=== PATIENT | female | born 1985 | race Caucasian/White ===

== ENCOUNTER 2018-01-11 06:11 | Emergency (ER) | payer MEDICAID, OTHER ==
[2018-01-11 06:21] VITALS: BP 150/96
[2018-01-11] MEDS ORDERED: DOXYCYCLINE HYCLATE 100 MG CAP/TAB PO ONE (06:43)
[2018-01-11] MEDS ORDERED: DOXYCYCLINE 100 MG PREPACK#2 BTL TAKEHOME ONE (06:43)
--- NOTE | 2018-01-11 06:44 | EDPHY ---
H & P Stated Complaint: L ELBOW SWELLING AND INCREASED REDNESS, ON KEFLEX Time Seen by Provider: 01/11/18 06:23 HPI/ROS: HPI The patient presents with left-sided elbow pain and swelling which has been present for the last 2 days. She had an elbow injury with a scab and then a dog licked her elbow and the next day she had redness, swelling, pain. She was seen yesterday morning in the emergency department and was diagnosed with cellulitis and started on Keflex. She has had some drainage from the wound which is whitish. She has had 3 doses of this, however the redness has spread and she has increased pain. She is able to move her elbow. She has not had a fever. She has no prior history of skin infection.. REVIEW OF SYSTEMS 10 systems were reviewed and negative with the exception of the elements mentioned in the history of present illness. PMHx: History of anxiety and PTSD, no diabetes Soc Hx: Here with her father, previous heavy alcohol use PHYSICAL General Appearance: Alert, no distress Eyes: Pupils equal and round no pallor or injection ENT, Mouth: Mucous membranes moist Respiratory: There are no retractions, lungs are clear to auscultation Cardiovascular: Regular rate and rhythm Neurological: A&O, moves all extremities Skin: Warm and dry, left elbow with approximately 3 cm who wound, I am not able to express any fluid from it, surrounding this both proximally and distally there is approximately 20 cm in diameter of erythema, warmth, tenderness, induration without any areas of fluctuance Musculoskeletal: Neck is supple non tender Extremities: symmetrical, full range of motion Psychiatric: Patient is oriented X 3, there is no agitation - Personal History LMP (Females 10-55): 1-7 Days Ago Current Tetanus/Diphtheria Vaccine: Unsure Current Tetanus Diphtheria and Acellular Pertussis (TDAP): Unsure - Medical/Surgical History Hx Asthma: No Hx Chronic Respiratory Disease: No Hx Diabetes: No Hx Cardiac Disease: No Hx Renal Disease: No Hx Cirrhosis: No Hx Alcoholism: No Hx HIV/AIDS: No Hx Splenectomy or Spleen Trauma: No Other PMH: SHOULDER SURG, ANXIETY/PTSD, - Social History Smoking Status: Never smoked Constitutional: Initial Vital Signs Temperature (C) 37.5 C 01/11/18 06:17 Heart Rate 112 H 01/11/18 06:17 Respiratory Rate 18 01/11/18 06:17 Blood Pressure 150/96 H 01/11/18 06:17 O2 Sat (%) 94 01/11/18 06:17 O2 Delivery Mode Room Air Allergies/Adverse Reactions: penicillin G Allergy (Verified 01/11/18 06:20) Home Medications: Medication Instructions Recorded Cephalexin [Keflex (*)] 500 mg PO QID 01/11/18 Clorazepate Dipotassium 15 mg PO 01/11/18 Doxycycline Hyclate 100 mg PO BID #14 tab 01/11/18 FLUoxetine [Prozac 20 MG (*)] 20 mg PO DAILY 01/11/18 Medical Decision Making Differential Diagnosis: 32-year-old healthy female presents with left elbow cellulitis, on improved with Keflex which she has been taking for 24 hr. She initially had an elbow injury with a scab and then dog licked her arm, subsequently developing an infection. She does not appear to have olecranon bursitis or septic joint. This seems to be a cellulitis though there is some purulence from the wound itself by her history. She is not systemically ill. I will add on doxycycline for broader coverage for MRSA. Plan for discharged from the emergency department, I have discussed wound care and return precautions with her. Departure - Departure Disposition: Home, Routine, Self-Care Clinical Impression: Cellulitis of left elbow Condition: Good Instructions: Cellulitis (ED) Additional Instructions: Please continue to take the Keflex. You should add this antibiotic to it and that should help this infection. If the redness spreads or you develop any high fevers, you should return to the emergency department. Otherwise, I recommend you follow up with your primary care doctor in 1-2 days. Referrals: Zia Nielson MD [Primary Care Provider] - As per Instructions Stand Alone Forms: Work Excuse Prescriptions: Doxycycline Hyclate 100 mg PO BID #14 tab
== END 2018-01-11 07:01 | disposition home or self-care (01) ==
LOC: EEVIPCON 06:11
DX: L03.114 Cellulitis of left upper limb (principal)